=== PATIENT | male | born 1960 | race Caucasian/White ===

== ENCOUNTER → 2019-10-24 | Day surgery (SDC) | payer OTHER ==
[~2019-10-24] MED LIST: BYSTOLIC10 MG PO; CREATINE100 GM PO; CYANOCOBALAMIN PO; OXYCODONE HCL 55 MG PO
--- NOTE | ~2019-10-24 | OP ---
[address] [address] OPERATIVE REPORT Name: TIERRA GRULLON Room: [facility]#: [id number] Admission: 10/24/19 Attend Phys: Trenton Perez DO Discharge: Date of : 64 Report #: [id number] THIS REPORT FOR: //name// CC: Trenton Medina DO DICTATED BY: Te Champion DO DATE OF SERVICE: 10/24/2019 PRIMARY CARE PHYSICIAN: Adonis Freitas Jr., Krystyna.O. REFERRING PHYSICIAN: Kailee Cerda D.O. PREOPERATIVE DIAGNOSIS: Left inguinal hernia. POSTOPERATIVE DIAGNOSIS: Bilateral indirect inguinal hernias. PRIMARY SURGEON: Trenton Perez D.O. CO-SURGEON: Te Champion D.O., PGY3. FUR GLOSSER: MS Lucio3. OPERATION PERFORMED: Robotic-assisted laparoscopic bilateral inguinal hernia repair with mesh and lysis of adhesions greater than 1 hour. ANESTHESIA: Both general and regional TAP blocks. ESTIMATED BLOOD LOSS: 20. SPECIMEN: None. COMPLICATIONS: None. FINDINGS: Dense omental adhesions around the umbilicus extending caudally to the right and left lower quadrants, dilated and very redundant sigmoid colon in the pelvis, sigmoid diverticulosis, and bilateral indirect inguinal hernias. INDICATIONS FOR PROCEDURE: The patient is a pleasant 59-year-old male who presented to the office with a chief complaint of left groin pain, first began to notice that when he was doing a heavy lifting workout in July, felt a pull. He notes periodic pain to the left lower quadrant and left groin. This progressively gotten worse over the last week or two. He had an ultrasound [facility] [address] [place] [address] OPERATIVE REPORT Name: YADITIERRA Karrie Room: [facility].#: [id number] Admission: 10/24/19 Attend Phys: Trenton Perez DO Discharge: Date of : 64 Report #: [id number] performed on 10/04, which showed a small left inguinal hernia. Denies any overlying skin changes, fever, chills, nausea, vomiting, or change in bowel habits. Recommended robotic-assisted laparoscopic left, possible right inguinal hernia repair with mesh. Full discussion of procedure, alternatives, risks and possible complications discussed to include, but not limited to bleeding, infection, postoperative pain, scarring, recurrence of inguinal hernia, injury to other underlying abdominal organs, mainly bowel or bladder, conversion to open procedure, urinary retention, mesh complications, need for mesh removal, further surgery, and anesthesia risks. The patient voiced understanding of the risks and agreed to proceed with surgery. OPERATIVE TECHNIQUE: The patient was again seen and examined in the preoperative holding. Fully informed written consent was obtained. Ancef 2 g was given, preoperative antibiotics. The patient was subsequently transported to the operating room suite and placed on the operating room table in the supine position. At this time, Anesthesia induced general anesthesia via endotracheal intubation and this was successful. Next, at this time, Anesthesia placed bilateral regional TAP blocks. SCDs were placed to bilateral lower extremity calves. Grounding pad was placed in the left lateral thigh. Arms were protected and a foam padding and tucked at the patient's side. A safety strap was placed across the patient's thighs. Nirmal Hugger was placed across the chest. The patient was then prepped and draped using standard sterile fashion. Time-out was performed prior to onset of procedure. We began making a vertical incision superior to the umbilicus. Using open Crouch technique, we dissected down through dermal and subcutaneous tissue to find the level of the fascia. Fascia was scored with electrocautery, grasped with bilateral Kochers, elevated and further transected. Hemostat was then used to plata the peritoneum. Two interrupted [id number] 0 Vicryl sutures were placed at the fascial apices. An 8-mm robotic camera trocar for the da Ermelinda SI was placed into the abdomen. Abdomen was then insufflated first using low flow, then high flow. A 30-degree robotic camera was then placed in the abdomen noting no injury to other underlying abdominal organs or structures. We did, however, note very dense omental adhesions around the umbilicus and extending to the left and right lower quadrants. We were able to get an additional 8-mm robotic trocar into the left mid abdomen and a 12-mm trocar was placed in the right mid abdomen. Using electrocautery, adhesions around the umbilical trocar were taken down in order to be able to dock the robot and placed the robotic camera into the abdomen. Once this was achieved, the robotic cart was brought to the patient's left side and the robotic arms were docked in the usual fashion. A fenestrated bipolar was placed on the left arm and a curved monopolar scissors was placed in the right arm. At this time, Dr. Perez assumed position at the robotic console to begin the dissection. Using the bipolar grasper and monopolar scissors, we were able to take down all the omental adhesions through the midline, right lower quadrant, left lower quadrant that were also overlying the left and right inguinal regions with cecum and the sigmoid colon adhesions as well. After this was performed, there were noted to be small bilateral indirect inguinal hernias. [place] [address] OPERATIVE REPORT Name: TIERRA GRULLON Room: [facility].#: [id number] Admission: 10/24/19 Attend Phys: Trenton Perez DO Discharge: Date of : 64 Report #: [id number] Intraoperative pictures were obtained. To begin the dissections, the ASIS on the left and right were marked on the anterior abdominal wall using electrocautery. Preperitoneal flaps were created in the exact same fashion on both sides starting with the median umbilical ligament extending laterally to the ASIS. This peritoneal flap was then extended caudally to the superior pubic ramus, laterally to the deep inguinal ring past the deep inguinal ring. At this time, the indirect inguinal hernia sac was reduced. Spermatic cord structures were all intact. The patient was noted to have very large dilated epigastric vessels. Next after the dissection was carried out completely, this was done in the exact same fashion on the right side. Of note, the patient was also noted to have very redundant sigmoid colon in the pelvis with sigmoid diverticulosis. Once the peritoneal flaps were created and hernia was reduced, two Bard 3DMax anatomical inguinal hernia meshes, both left and the right, were brought on to the back table and placed into the abdomen and into the peritoneal flaps in proper orientation. These were then sewn in place using a 2-0 Vicryl at Steven's ligament and then both medially and laterally to the epigastric vessels. This was done in the exact same way on the left and right sides. Next, the intra-abdominal pressure was dropped from 15 to 10 and the peritoneal flaps were closed using a running 2-0 V-Loc suture. Pictures were obtained of the adhesions, the hernias prior to the peritoneal flap creation, after flap creation, and reduction of hernias and hernia sacs after mesh placement and finally when the peritoneal flaps were closed. All needles and instruments were then removed from the abdomen. The robot was then undocked and taken away from the patient's bedside. The 12- mm trocar in the right mid abdominal fascia was closed using a PMI closure device and a 0 Vicryl suture. The abdomen was then desufflated under direct visualization. Once the abdomen was fully desufflated, the remaining two 8-mm robotic trocars were removed. Two additional interrupted [id number] 0 Vicryl sutures were placed in the fascia at the umbilical incision and a layered closure using 3-0 interrupted Vicryl and running subcuticular 4-0 Monocryl was used to close the skin. The 3-0 interrupted Vicryl was used to close the subcutaneous and deep dermal layers. The additional trocar sites skin was closed using subcuticular interrupted 4-0 Monocryl. The patient tolerated the procedure well. Abdomen was cleansed using wet and dry laps. Sterile dressing was then applied; Mastisol, Steri-Strips, Tegaderms. The patient was extubated in the OR, transferred to PACU in stable condition after brief recovery from anesthesia. Plan to discharge home and follow up in the office with Dr. Perez in 1 week. By: [id number] Solo Perez DO /nt
[2019-10-24 07:11] LABS: HEMATOCRIT 49.2 % (42.0-52.0); HEMOGLOBIN 16.8 gm/dL (14.0-18.0); MCHC 34.1 g/dL (28.0-37.0); RBC 5.4 mil/uL (4.50-6.00); RDW-CV 13.2 % (10.5-14.5); WBC 7.3 thou/uL (4.0-11.0)
--- NOTE | 2019-10-24 10:44 | EKG ---
[place] [address] ELECTROCARDIOGRAM REPORT Name: YADITIERRA Yoon Room: [facility]#: [id number] Admission: 10/24/19 Attend Phys: Trenton Perez DO Discharge: Date of : 64 Report #: [id number] THIS REPORT FOR: //name// [facility] Test Date: 2019-10-24 Test Time: 07:19:25 Pat Name: TIERRA GRULLON Department: Room: Gender: M Spot Welder Body Assembly: : 1960 Requested By: Trenton Perez Order Number: [id number] Reading MD: Chano Flood Measurements Intervals [place] Rate: 69 P: 76 ME: 130 QRS: 67 QRSD: 100 T: -30 QT: 374 QTc: 401 Interpretive Statements Sinus rhythm with short pr interval Borderline repolarization abnormality Borderline ST elevation, anterior leads No previous ECG available for comparison Electronically Signed On 10-24-2019 10:43:28 LACE INSPECTOR by Chano Flood [email or web address] <ELECTRONICALLY SIGNED> By: Chano Flood MD, [facility] 10/24/19 1043 0719 07 Chano Flood MD, FACC /EPI
== END | disposition home or self-care (01) ==
LOC: M.SUR 06:19
PROVIDERS: Surgery
DX: K40.20 Bilateral inguinal hernia, without obstruction or gangrene, not specified as recurrent (principal); K66.0 Peritoneal adhesions (postprocedural) (postinfection); Z98.890 Other specified postprocedural states; Z79.899 Other long term (current) drug therapy; Z90.49 Acquired absence of other specified parts of digestive tract